=== PATIENT | male | born 1955 | race Caucasian/White ===

== ENCOUNTER → 2017-05-04 | Day surgery (SDC) | payer OTHER ==
[~2017-05-04] VITALS: Ht 175.3 cm; Wt 102.1 kg
[~2017-05-04] MED LIST: ENDOCET 5-3251 EACH PO; FINASTERIDE5 M1 PO; FLOMAX0.4 M1 PO; GOOD SENSE ASPI81 M1 PO; HYDROMORPHONE HC2 M1 PO; KEFLEX500 M1 PO; PREVACID30 M1 PO; VITAMIN D50000 I1 PO
[2017-05-04 08:04] LABS: ABSOLUTE BASOPHIL COUNT 0 /CUMM (0.0-0.2); ABSOLUTE EOSINOPHIL COUNT 0.2 /CUMM (0.0-0.7); ABSOLUTE GRANULOCYTE CT 3.4 /CUMM (1.4-6.5); ABSOLUTE LYMPH COUNT 1.4 /CUMM (1.2-3.4); ABSOLUTE MONOCYTE COUNT 0.7 /CUMM (0.10-0.60); BASOPHIL % 0.7 % (0.0-2.0); MEAN CORPUSCULAR VOLUME 87.5 FL (80.0-94.0); WHITE BLOOD CELL COUNT 5.8 /CUMM (4.8-10.8)
[2017-05-04 08:05] LABS: EOSINOPHIL % 3.4 % (0-5); GRANULOCYTE % 59.1 % (42.2-75.2); HEMATOCRIT 46.6 % (42-52); MEAN CORPUSCULAR HGB 29.5 PG (27.0-31.0); MEAN CORPUSCULAR HGB CONC 33.7 G/DL (33.0-37.0); MEAN PLATELET VOLUME 7.7 FL (7.4-10.4); PLATELET COUNT 196 /CUMM (130-400); RBC DISTRIBUTION WIDTH 13.5 % (11.5-14.5); RED BLOOD CELL CT 5.32 /CUMM (4.70-6.10)
--- NOTE | 2017-05-04 10:27 | Operative Report ---
Operative/Inv Procedure Report Surgery Date: 05/04/17 Name of Procedure: RIGHT RENAL ESWL: FLUOROSCOPY Pre-Operative Diagnosis: RIGHT RENAL STONE Post-Operative Diagnosis: SAME Estimated Blood Loss: none Surgeon/Boat Canvas Maker And Installer: Nehemias Soto MD Anesthesia: moderate sedation Complications: NONE Operative Indication: bilateral renal colic: right stone: left cyst. Operative/Procedure Note Note: The patient was taken to the operating room placed on the OR table in supine position. Timeout was performed, with the patient awake, in order to confirm correct procedure, laterality, anesthesia, and other pertinent perioperative information. After adequate anesthesia and antibiotics, the patient was then positioned over the ESWL table cutout overlying the treatment dome. Fluoroscopy, using AP and oblique views, as well as renal ultrasound, or performed in order to locate the stone. The position of the stone was optimized, and positioned in the middle of the ESWL crosshairs. The stone was measured to be approximately 9 mm in size. ESWL was initiated at low power, and after 200 shockwaves delivered, noting the patient's tolerance to the shockwaves, the power was increased to maximum. At the end of 2500 shockwaves, fluoroscopy confirms the change in consistency of the stone, indicating shattering of the stone. All sponge needle and instrument count were correct at the end of the case. The patient tolerated the procedures well, and was taken to the recovery room in satisfactory condition. The patient is discharged home with pain medication, and follow-up instructions with in 2-3 weeks' time. Discharge Disposition: Same Day Admissions CC: Nehemias Soto MD
== END ==
LOC: STS 03:12
PROVIDERS: Urology
DX: N20.0 Calculus of kidney (principal); Z87.442 Personal history of urinary calculi; Z86.73 Personal history of transient ischemic attack (TIA), and cerebral infarction without residual deficits; M19.90 Unspecified osteoarthritis, unspecified site; Z79.82 Long term (current) use of aspirin
CPT/HCPCS: 36415

== ENCOUNTER → 2017-07-13 | Day surgery (SDC) | payer OTHER ==
[~2017-07-13] VITALS: Ht 175.3 cm; Wt 102.1 kg
--- NOTE | 2017-07-15 09:20 | Operative Report ---
Operative/Inv Procedure Report Surgery Date: 07/13/17 Name of Procedure: Left renal ESWL. Fluoroscopy Pre-Operative Diagnosis: Left renal stone Post-Operative Diagnosis: Same Estimated Blood Loss: none Surgeon/Distribution Analyst: Nehemias Soto MD Anesthesia: moderate sedation Drains: None Complications: Not Operative/Procedure Note Note: The patient was taken to the operating room and placed on the ESWL table in supine position. With the patient awake, timeout was performed to confirm correct identity, procedure, laterality, anesthesia, and other pertinent teresa- operative information. After adequate anesthesia, the patient was positioned so that the patient's left flank was positioned over the table cut-out, overlying the dome of the treatment head. Once the patient was adequately sedated, fluoroscopy, as well as Renal ultrasound was used to locate the LEFT renal stone. Renal US confirmed the presence of the stone which measured it to be approximately 6 mm upper pole stone. The stone was visible with fluoroscopy. Renal US revealed, no hydronephrosis, and no solid tumor, and presence of the stone. The position of the stone was optimized by using fluoroscopy in AP and oblique views;placing the stone within the ESWL c-arm crosshairs. Once the stone's position was optimized , the LEFT renal E.S.W.L. was initiated at low energy level. After noting the patient's tolerance to the shockwaves, the intensitiy was ramped up to maximum level. At the end of the procedure, the left renal stone had dissintegrated. Of note, a total of 2500 shockwaves were delivered to the stone. The patient tolerated the ESWL procedures well, was awakened, then taken to recovery in satisfactory condition via stretcher. The patient was dischared home with pain medications, diet orders, and intructions to catch fragments by straining the urine. The patient to to have follow-up renal ultrasound and KUB in 1 to 2 weeks, prior to follow-up visit in my office. He will then proceed with metabolic stone work-up. Discharge Disposition: Same Day Admissions CC: Nehemias Soto MD
== END ==
LOC: STS 02:26
DX: N20.0 Calculus of kidney (principal); Z87.442 Personal history of urinary calculi; R97.20 Elevated prostate specific antigen [PSA]; R30.0 Dysuria; K22.70 Barrett's esophagus without dysplasia
CPT/HCPCS: J2250

== ENCOUNTER → 2017-09-10 | Day surgery (SDC) | payer OTHER ==
[~2017-09-10] VITALS: Ht 175.3 cm; Wt 102.1 kg
--- NOTE | 2017-09-16 10:26 | Operative Report ---
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 [place] site base of neck. Pre-Operative Diagnosis: recurrent BCCA scalp Post-Operative Diagnosis: same Estimated Blood Loss: scant Surgeon/Balance Engineer: Dylan MORENO,Philip De Leon Anesthesia: general endotracheal tube Operative/Procedure Note Note: Patient positioned on the OR table supine and after successful induction of general anesthesia, this lesion was frontal to the left, a border was clipped around it and then that area and the neck were prepped and draped in usual sterile fashion. We aimed a circular incision around it with at least a cm border, then we infiltrated local anesthetic, oriented with sutures for the pathologist in 2 areas, and excised the lesion, through the subcutaneous layer to the galea, one piece used cautery for hemostasis then placed a moistened Ray-Jose Guadalupe while we harvested a similarly sized piece from the base of his neck laterally on the right, an approximate wound excision piece was drawn then we injected local anesthetic and we made the excision full-thickness with a 15 blade placed that in saline, then closed that primarily in line with the skin lines in layers with 3-0 Vicryl sutures subdermally and 4-0 nylon for skin. Then with a 10 blade we scraped off the fat on the graft we fenestrated with the tip of the blade laid it into the excision site and tacked it down with multiple interrupted 4-0 nylon's keeping the ends long on 4 of them which were then used to tie down the dressing, consisting of Xeroform a moistened cotton ball and gauze and tape. The diameter of the harvest and excision site was 3.5 cm. EBL minimal lap and sponge counts correct wound expectancy clean IV fluids crystalloid complications none patient tolerated the procedure well was awakened extubated and returned to recovery room in satisfactory condition.
== END ==
LOC: STS 03:36
DX: C44.41 Basal cell carcinoma of skin of scalp and neck (principal); Z87.442 Personal history of urinary calculi; K22.70 Barrett's esophagus without dysplasia; Z79.82 Long term (current) use of aspirin; G47.30 Sleep apnea, unspecified
CPT/HCPCS: J0131; J0690; J2250; J3490